=== PATIENT | female | born 1970 | race Caucasian/White ===

== ENCOUNTER 2023-08-28 20:32 | Emergency (ER) | payer OTHER, MEDICAID ==
[~2023-08-28] VITALS: Ht 160 cm; Wt 58.1 kg
[2023-08-28 20:55] VITALS: BP_SYST 122; PULSE 82; RESP 16; TEMP 97.6; O2SAT 99
[2023-08-28] MEDS ORDERED: TRAM50TA2 PO (22:39)
[2023-08-28 22:55] VITALS: BP_SYST 119; PULSE 79; RESP 16; TEMP 97.6; O2SAT 100
== END 2023-08-28 22:50 | disposition home or self-care (01) ==
LOC: SED 20:32
DX: S61.210A Laceration without foreign body of right index finger without damage to nail, initial encounter (principal); E11.9 Type 2 diabetes mellitus without complications; I10 Essential (primary) hypertension; Z79.899 Other long term (current) drug therapy; W55.09XA Other contact with cat, initial encounter; Y93.89 Activity, other specified; Y92.89 Other specified places as the place of occurrence of the external cause; Y99.8 Other external cause status
CPT/HCPCS: 73140-TC; 99283